=== PATIENT | male | born 1980 | race Caucasian/White ===

== ENCOUNTER 2017-10-13 00:34 | Emergency (ER) | payer OTHER ==
[~2017-10-13] VITALS: Ht 165.1 cm; Wt 86.2 kg
[~2017-10-13 00:34] MED LIST: BUSP15TA70 PO; RISP4TAB7 PO
[2017-10-13 00:35] VITALS: Ht 165.1 cm; Wt 86.2 kg
--- NOTE | 2017-10-13 01:06 | EMERGENCY ROOM VISIT NOTE ---
History Report prepared by Aria: Alton Jeong Under the Supervision of: Dr. Hermila Car M.D. First contact with patient: 00:40 Chief Complaint: MENTAL HEALTH EVALUATION Stated Complaint: MENTAL HEALTH EVALUATION History of Present Illness The patient is a 36 year old male who presents to the Emergency Room for a mental health evaluation due to the inability to care for himself. Per the patients sisters petition, the patient has been turning off the heat in his house, he thinks that people are robots, he is going to kill the dogs if they dont start growling, and he has been throwing away food. The patient states that tonight he was trying to sleep, and [place] came to his house and talked to him, and the police came and took him to the ED. The patient states that he would not hurt himself or anyone else, and he does not have any medical problems. The patient states he is supposed to serve a 30 day incarceration due to drug related issues. He states that he has not used and drugs in a long time. He denies any abdominal pain or recent sickness. History is limited secondary to non-cooperation. Source of History: patient, other (petitioning statement) History Limited By: other (non-cooperation) Onset: earlier today Position: other (global) Quality: other (inability to care for himself) Associated Symptoms: No abdominal pain Review of Systems See HPI for pertinent positives & negatives. A total of 10 systems reviewed and were otherwise negative. Past Medical & Surgical Medical Problems: (1) Depressive Disorder Nec (2) Schizophreniform Disorder, Unspecified Family History Cancer Diabetes mellitus Heart disease Social History Smoking Status: Current Every Day Smoker Alcohol Use: none Drug Use: marijuana Marital Status: single, in relationship Occupation Status: unemployed, disabled Current/Historical Medications Unable to Obtain Active Prescriptions or Reported Meds Allergies Coded Allergies: No Known Allergies (Verified , 09/06/14) Physical Exam Vital Signs Date Time Temp Pulse Resp B/P (MAP) Pulse Ox O2 Delivery O2 Flow Rate FiO2 10/13/17 06:45 36.8 88 20 120/77 97 Room Air 10/13/17 01:52 37.0 99 20 124/68 97 Room Air 10/13/17 00:35 37.1 132 20 138/93 96 Room Air Physical Exam Vital signs reviewed. General: Generally unkempt male, in no significant distress. HEENT: No scleral icterus, PERRLA, neck supple. Atraumatic. Cardiovascular: Regular rate and rhythm, no extra sounds. Pulmonary: Clear to auscultation bilaterally, normal work of breathing. Abdomen: Soft, nontender, nondistended, positive bowel sounds. Musculoskeletal: Atraumatic, no peripheral edema. Neurologic: Patient awake alert and oriented x 3 Skin: Warm, dry, no rash Psych: agitated, minimally cooperative, denies SI and HI, and he has paranoid thinking. Medical Decision & Procedures Laboratory Results 10/13/17 01:04 Red Blood Count 5.21, Mean Corpuscular Volume 84.3, Mean Corpuscular Hemoglobin 30.7, Mean Corpuscular Hemoglobin Concent 36.4, Mean Platelet Volume 9.3, Neutrophils (%) (Auto) 50.0, Lymphocytes (%) (Auto) 38.9, Monocytes (%) (Auto) 9.9, Eosinophils (%) (Auto) 0.8, Basophils (%) (Auto) 0.3, Neutrophils # (Auto) 5.56, Lymphocytes # (Auto) 4.32, Monocytes # (Auto) 1.10, Eosinophils # (Auto) 0.09, Basophils # (Auto) 0.03 10/13/17 01:04 Test 10/13/17 00:48 10/13/17 01:04 Urine Color YELLOW Urine Appearance CLEAR (CLEAR) Urine pH 6.5 (4.5-7.5) Urine Specific [place] 1.008 (1.000-1.030) Urine Protein NEG (NEG) Urine Glucose (UA) NEG (NEG) Urine Ketones NEG (NEG) Urine Occult Blood NEG (NEG) Urine Nitrite NEG (NEG) Urine Bilirubin NEG (NEG) Urine Urobilinogen NEG (NEG) Urine Leukocyte Esterase TRACE (NEG) Urine WBC (Auto) /hpf (0-5) Urine RBC (Auto) /hpf (0-4) Urine Hyaline Casts (Auto) /lpf (0-5) Urine Epithelial Cells (Auto) /lpf (0-5) Urine Bacteria (Auto) (NEG) Urine RBC 0-4 /hpf (0-4) Urine WBC 1-5 /hpf (0-5) Urine Epithelial Cells 5-10 /lpf (0-5) Urine Bacteria NEG (NEG) Urine Opiates Screen NEG (NEG) Urine Methadone, Qualitative NEG (NEG) Urine Barbiturates NEG (NEG) Urine Phencyclidine (PCP) Level NEG (NEG) Ur Amphetamine/Methamphetamine NEG (NEG) MDMA (Ecstasy) Screen NEG (NEG) Urine Benzodiazepines Screen NEG (NEG) Urine Cocaine Metabolite NEG (NEG) Urine Marijuana (THC) NEG (NEG) White Blood Count 11.11 K/uL (4.8-10.8) Red Blood Count 5.21 M/uL (4.7-6.1) Hemoglobin 16.0 g/dL (14.0-18.0) Hematocrit 43.9 % (42-52) Mean Corpuscular Volume 84.3 fL (80-100) Mean Corpuscular Hemoglobin 30.7 pg (25-34) Mean Corpuscular Hemoglobin Concent 36.4 g/dl (32-36) Platelet Count 300 K/uL (130-400) Mean Platelet Volume 9.3 fL (7.4-10.4) Neutrophils (%) (Auto) 50.0 % Lymphocytes (%) (Auto) 38.9 % Monocytes (%) (Auto) 9.9 % Eosinophils (%) (Auto) 0.8 % Basophils (%) (Auto) 0.3 % Neutrophils # (Auto) 5.56 K/uL (1.4-6.5) Lymphocytes # (Auto) 4.32 K/uL (1.2-3.4) Monocytes # (Auto) 1.10 K/uL (0.11-0.59) Eosinophils # (Auto) 0.09 K/uL (0-0.5) Basophils # (Auto) 0.03 K/uL (0-0.2) RDW Standard Deviation 40.1 fL (36.4-46.3) RDW Coefficient of Variation 13.2 % (11.5-14.5) Immature Granulocyte % (Auto) 0.1 % Immature Granulocyte # (Auto) 0.01 K/uL (0.00-0.02) Anion Gap 7.0 mmol/L (3-11) Est Creatinine Clear Calc Drug Dose 108.3 ml/min Estimated GFR () 117.6 Estimated GFR (Non- 101.4 BUN/Creatinine Ratio 11.7 (10-20) Calcium Level 8.4 mg/dl (8.5-10.1) Total Bilirubin 0.2 mg/dl (0.2-1) Direct Bilirubin < 0.1 mg/dl (0-0.2) Aspartate Amino Transf (AST/SGOT) 19 U/L (15-37) Alanine Aminotransferase (ALT/SGPT) 46 U/L (12-78) Alkaline Phosphatase 97 U/L (45-117) Total Protein 6.9 gm/dl (6.4-8.2) Albumin 3.3 gm/dl (3.4-5.0) Thyroid Stimulating Hormone (TSH) 2.280 uIu/ml (0.300-4.500) Salicylates Level 2.9 mg/dl (2.8-20) Acetaminophen Level < 2 ug/ml (10-30) Ethyl Alcohol mg/dL < 3.0 mg/dl (0-3) Laboratory results per my review. Medications Administered Medications (Trade) Dose Ordered Sig/Genaro Route Start Time Stop Time Status Last Admin Dose Admin Potassium Chloride (Klor-Con M10) 40 meq NOW STAT PO 10/13/17 01:47 10/13/17 01:48 DC 10/13/17 01:57 40 MEQ ED Course 0040: Past medical records reviewed. The patient was evaluated in room A8. A complete history and physical examination was performed. 0147: Potassium Chloride 40meq PO 0705: I signed the transfer papers for the patient to go to [place]. Medical Decision Differential diagnosis: Etiologies such as mood disorder, infection, hypoglycemia, electrolyte abnormalities, cardiac sources, intracerebral event, toxicologic, neurologic, as well as others were entertained. This patient was evaluated and appeared to be in no significant distress. He is somewhat disheveled. He was medically cleared, found to have a slightly low potassium. He was given 40 mEq by mouth. The patient is refusing inpatient admission. The 302 was signed as he is unable to care for himself, has paranoid thinking, disorganized thoughts and has not been taking any of his medications for the better part of 3 months. [facility] Secure transportation arrangements have been made. Medication Reconcilliation Current Medication List: was personally reviewed by me Blood Pressure Screening Patient's blood pressure: Normal blood pressure Impression Primary Impression: Paranoia Additional Impressions: Disorganized thought process Noncompliance with medication regimen Scribe Attestation The scribe's documentation has been prepared under my direction and personally reviewed by me in its entirety. I confirm that the note above accurately reflects all work, treatment, procedures, and medical decision making performed by me. Departure Information Dispostion Mental Health Acute Care Prescriptions Unable to Obtain Active Prescriptions or Reported Meds Referrals No Doctor, Assigned (PCP) Patient Instructions My [facility] Problem Qualifiers
[2017-10-13 01:13] LABS: BASO % 0.3 %; BASO ABS # 0.03 K/uL (0-0.2); EOS % 0.8 %; EOS ABS # 0.09 K/uL (0-0.5); HEMATOCRIT 43.9 % (42-52); IG# 0.01 K/uL (0.00-0.02); LYMPH % 38.9 %; LYMPH ABS # 4.32 K/uL (1.2-3.4); MEAN CELL VOLUME 84.3 fL (80-100); MEAN CORPUSCULAR HEMOGLOBIN 30.7 pg (25-34); MEAN CORPUSCULAR HGB CONC 36.4 g/dl (32-36); MEAN PLATELET VOLUME 9.3 fL (7.4-10.4); MONO % 9.9 %; NEUT ABS # 5.56 K/uL (1.4-6.5); PLATELET COUNT 300 K/uL (130-400); RED CELL DISTRIBUTION WIDTH CV 13.2 % (11.5-14.5); RED CELL DISTRIBUTION WIDTH SD 40.1 fL (36.4-46.3); WHITE BLOOD COUNT 11.11 K/uL (4.8-10.8)
[2017-10-13 01:31] LABS: ALBUMIN 3.3 gm/dl (3.4-5.0); ALT/SGPT 46 U/L (12-78); AST/SGOT 19 U/L (15-37); BLOOD UREA NITROGEN 11 mg/dl (7-18); CALCIUM 8.4 mg/dl (8.5-10.1); CARBON DIOXIDE 26 mmol/L (21-32); CREATININE 0.97 mg/dl (0.60-1.40); GLUCOSE 105 mg/dl (70-99); POTASSIUM 3.3 mmol/L (3.5-5.1); SODIUM 138 mmol/L (136-145)
[2017-10-13 01:42] LABS: ALKALINE PHOSPHATASE 97 U/L (45-117); TOTAL PROTEIN 6.9 gm/dl (6.4-8.2)
[2017-10-13] MEDS ORDERED: POTASSIUM CHLORIDE 10 MEQ TABCR PO STA (01:47)
[2017-10-13 08:24] VITALS: BP 120/77; PULSE 88; TEMP 36.8; O2SAT 97
== END 2017-10-13 08:26 ==
LOC: C.EDB 00:36 → C.EDA 08:26
DX: F22 Delusional disorders (principal); F20.1 Disorganized schizophrenia; Z91.14 Patient's other noncompliance with medication regimen; F32.9 Major depressive disorder, single episode, unspecified; F17.210 Nicotine dependence, cigarettes, uncomplicated; Z80.9 Family history of malignant neoplasm, unspecified; Z83.3 Family history of diabetes mellitus; Z82.49 Family history of ischemic heart disease and other diseases of the circulatory system

== ENCOUNTER 2018-01-16 22:32 | Emergency (ER) | payer OTHER ==
[~2018-01-16] VITALS: Ht 162.6 cm; Wt 82.1 kg
[2018-01-16] MEDS ORDERED: [UNRECOGNIZED DRUG - CODE] INJ (22:55)
--- NOTE | 2018-01-16 23:13 | EMERGENCY ROOM VISIT NOTE ---
History Report prepared by Aria: Margarita Wilder Under the Supervision of: Yann PetersonO. First contact with patient: 22:34 Chief Complaint: OTHER COMPLAINT Stated Complaint: MENTAL HEALTH EVALUATION History of Present Illness The patient is a 37 year old male who presents to the Emergency Room for a mental health evaluation. The patient states he is not thinking straight and reports he is supposed to be on medications. He states "I'm just tired and need to shower". He notes he has chronic back pain. Earlier this evening he called [facility] to request to speak with someone. He met with [facility] worker at [facility] for assessment. He is on probation in [facility] but came to [place] recently to live with his sister. When he got to his sisters 3 days ago she told him that he could not stay there so patient has been living on the streets. Denies suicidal and homicidal ideation to [facility]. Denies current SI/HI. He states he is scared someone is going to hurt him. He reports he is on a social security income and is unable to afford an apartment with the money he has. He states he is seeing things he shouldn't see. The patient has a history of Schizophrenia. He states his last Invega injection was a while ago. Not taking oral Invega. Denies any current or recent drug or alcohol use. Denies any trauma. Source of History: patient Associated Symptoms: + back pain Review of Systems ROS limited. Past Medical & Surgical Medical Problems: (1) Depressive Disorder Nec (2) Schizophreniform Disorder, Unspecified Family History Cancer Diabetes mellitus Heart disease Social History Smoking Status: Current Every Day Smoker Alcohol Use: none Drug Use: marijuana Marital Status: single, in relationship Occupation Status: unemployed, disabled Current/Historical Medications Scheduled Paliperidone Palmitate (Invega Trinza), 1 DOSE INJ Q3MO Quetiapine Fumarate (Seroquel), 200 MG PO DAILY Allergies Coded Allergies: No Known Allergies (Verified , 01/16/18) Physical Exam Vital Signs Date Time Temp Pulse Resp B/P (MAP) Pulse Ox O2 Delivery O2 Flow Rate FiO2 01/16/18 23:18 37.0 86 18 113/66 95 Room Air Physical Exam GENERAL: alert, well appearing, well nourished, no distress, non-toxic EYE EXAM: normal conjunctiva, PERRL and EOM's grossly intact NECK: supple, no nuchal rigidity, no adenopathy, non-tender LUNGS: Clear to auscultation. Normal chest wall mechanics HEART: no murmurs, S1 normal and S2 normal ABDOMEN: abdomen soft, non-tender, normo-active bowel sounds, no masses, no rebound or guarding. BACK: Back is symmetrical on inspection and there is no deformity, no midline tenderness, no CVA tenderness. SKIN: no rashes and no bruising UPPER EXTREMITIES: upper extremities are grossly normal. LOWER EXTREMITIES: No pitting edema. NEURO EXAM: Normal sensorium, cranial nerves II-XII [grossly] intact, normal speech, no [gross] weakness of arms, no [gross] weakness of legs. Medical Decision & Procedures ED Course 2233: The patient was evaluated in room A5. A complete history and physical exam was performed. 2350: I discussed results and plan with patient. He verbalizes agreement and understanding. He was discharged home. Medical Decision Differential diagnosis: Etiologies such as mood disorder, infection, hypoglycemia, electrolyte abnormalities, cardiac sources, intracerebral event, toxicologic, neurologic, as well as others were entertained. Medication Reconcilliation Current Medication List: was personally reviewed by me Blood Pressure Screening Patient's blood pressure: Normal blood pressure Impression Primary Impression: Schizophrenia Additional Impression: Homelessness Scribe Attestation The scribe's documentation has been prepared under my direction and personally reviewed by me in its entirety. I confirm that the note above accurately reflects all work, treatment, procedures, and medical decision making performed by me. Departure Information Dispostion Home / Self-Care Referrals No Doctor, Assigned (PCP) Patient Instructions My [facility] Additional Instructions Please follow-up as recommended by the medical case manager regarding receiving your injections, as well as additional resources available. If you have any new or concerning symptoms, please return to the emergency room. Problem Qualifiers Primary Impression: Schizophrenia Schizophrenia type: unspecified Qualified Codes: F20.9 - Schizophrenia, unspecified
[2018-01-16 23:18] VITALS: TEMP 37; Ht 162.6 cm; Wt 82.1 kg
[2018-01-17 00:32] VITALS: BP 136/81; PULSE 110; O2SAT 99
[2018-01-17] MEDS ORDERED: PALI234I IM (20:01)
[2018-01-17] MEDS ORDERED: SRQ/200 PO (22:55)
== END 2018-01-17 00:30 | disposition home or self-care (01) ==
LOC: EDBD 22:32 → C.EDA 22:35
DX: F20.9 Schizophrenia, unspecified (principal); Z59.0 Homelessness; F32.9 Major depressive disorder, single episode, unspecified; F17.210 Nicotine dependence, cigarettes, uncomplicated; Z79.899 Other long term (current) drug therapy

== ENCOUNTER 2018-01-17 18:36 | Emergency (ER) | payer OTHER ==
[~2018-01-17] VITALS: Ht 165.1 cm; Wt 85.0 kg
[~2018-01-17 18:36] MED LIST changes: -BUSP15TA70 PO; -RISP4TAB7 PO; +[UNRECOGNIZED DRUG - CODE] INJ
[2018-01-17 19:00] VITALS: Ht 165.1 cm; Wt 85.0 kg
[2018-01-17] MEDS ORDERED: PALI234I IM (20:01)
[2018-01-17 20:21] LABS: BASO % 0.2 %; BASO ABS # 0.02 K/uL (0-0.2); EOS % 0.7 %; EOS ABS # 0.08 K/uL (0-0.5); HEMOGLOBIN 15.3 g/dL (14.0-18.0); IG# 0.03 K/uL (0.00-0.02); LYMPH % 33.2 %; LYMPH ABS # 3.86 K/uL (1.2-3.4); MEAN CELL VOLUME 82.9 fL (80-100); MEAN CORPUSCULAR HEMOGLOBIN 29.5 pg (25-34); MEAN CORPUSCULAR HGB CONC 35.6 g/dl (32-36); MEAN PLATELET VOLUME 8.8 fL (7.4-10.4); MONO % 6.5 %; MONO ABS # 0.75 K/uL (0.11-0.59); NEUT % 59.1 %; NEUT ABS # 6.88 K/uL (1.4-6.5); PLATELET COUNT 399 K/uL (130-400); RED CELL DISTRIBUTION WIDTH CV 13.2 % (11.5-14.5); WHITE BLOOD COUNT 11.62 K/uL (4.8-10.8)
[2018-01-17 20:39] LABS: ALBUMIN 3.2 gm/dl (3.4-5.0); CALCIUM 7.9 mg/dl (8.5-10.1); CREATININE 0.83 mg/dl (0.60-1.40); POTASSIUM 3.3 mmol/L (3.5-5.1)
[2018-01-17 20:50] LABS: TOTAL PROTEIN 7.3 gm/dl (6.4-8.2)
[2018-01-17] MEDS ORDERED: SRQ/200 PO (22:55)
--- NOTE | 2018-01-18 00:45 | EMERGENCY ROOM VISIT NOTE ---
History Report prepared by Aria: Benoit Munoz Under the Supervision of: Dr. Tony Montgomery D.O. First contact with patient: 18:50 Stated Complaint: MHID History of Present Illness The patient is a 37 year old male who presents to the Emergency Room with request for episodic general mental health evaluation [employer]. Per CAN help manager safe the patient was seen and evaluated yesterday for similar symptoms, though she reports the patient cried during the entire evaluation and was unable to share enough information. She notes that she met with the patient today. She states the patient seems very paranoid and feels as though he is being watched. He stated that he believes his parents were murdered. She notes the patient is on probation for drug possession, though the patient reports that he has not used drugs. The patient reports that he is homeless and needs help. Per CAN help manager safe, the patient stated that he has to be crazy in order to get help. The patient reported that he needs to act crazy and become aggressive to get help. He believes people brought diseases around him and that is why he has schizophrenia. It is unclear if the patient was actually diagnosed with schizophrenia in the past. He is worried about someone giving him a weapon so he could shoot himself. The patient states that he feels helpless. The patient repetitively states that he does not want to be charged with a felony and wants help. He states that he contacted [facility] for help. He reports that he would like to go to [facility]. Source of History: patient Onset: [employer] Position: other (general ) Quality: other (mental health evaluation) Note: Notes helplessness. Review of Systems See HPI for pertinent positives & negatives. A total of 10 systems reviewed and were otherwise negative. Past Medical & Surgical Medical Problems: (1) Depressive Disorder Nec (2) Schizophreniform Disorder, Unspecified Family History Cancer Diabetes mellitus Heart disease Social History Smoking Status: Current Every Day Smoker Alcohol Use: none Drug Use: marijuana Marital Status: single, in relationship Occupation Status: unemployed, disabled Current/Historical Medications Scheduled Paliperidone Palmitate (Invega Sustenna), 1 SYR IM MONTHLY Quetiapine Fumarate (Seroquel), 1 TAB PO DAILY Allergies Coded Allergies: Haloperidol (Verified Adverse Reaction, Severe, UNCONTROLABLE MOVEMENTS, ) Physical Exam Vital Signs Date Time Temp Pulse Resp B/P (MAP) Pulse Ox O2 Delivery O2 Flow Rate FiO2 01/17/18 19:00 37.3 98 20 150/85 96 Room Air Physical Exam CONSTITUTIONAL/VITAL SIGNS: Reviewed / noted above. GENERAL: Non-toxic in appearance. INTEGUMENTARY: Warm, dry, and [place]. HEAD: Normocephalic. EYES: without scleral icterus or trauma. ENT/OROPHARYNX: clear and moist. LYMPHADENOPATHY/NECK: Is supple without lymphadenopathy or meningismus. RESPIRATORY: Lungs clear and equal. CARDIOVASCULAR: Regular rate and rhythm. GI/ABDOMEN: Soft and nontender. No organomegaly or pulsatile mass. No rebound or guarding. Normal bowel sounds. EXTREMITIES: Warm and well perfused. BACK: No CVA tenderness. NEUROLOGICAL: Intact without focal deficits. PSYCHIATRIC: Depressed affect. Paranoia. MUSCULOSKELETAL: Normally developed with good muscle tone. Medical Decision & Procedures Laboratory Results 01/17/18 19:54 Red Blood Count 5.19, Mean Corpuscular Volume 82.9, Mean Corpuscular Hemoglobin 29.5, Mean Corpuscular Hemoglobin Concent 35.6, Mean Platelet Volume 8.8, Neutrophils (%) (Auto) 59.1, Lymphocytes (%) (Auto) 33.2, Monocytes (%) (Auto) 6.5, Eosinophils (%) (Auto) 0.7, Basophils (%) (Auto) 0.2, Neutrophils # (Auto) 6.88, Lymphocytes # (Auto) 3.86, Monocytes # (Auto) 0.75, Eosinophils # (Auto) 0.08, Basophils # (Auto) 0.02 01/17/18 19:54 Test 01/17/18 19:15 01/17/18 19:54 Urine Color YELLOW Urine Appearance CLEAR (CLEAR) Urine pH 6.5 (4.5-7.5) Urine Specific [place] 1.008 (1.000-1.030) Urine Protein NEG (NEG) Urine Glucose (UA) NEG (NEG) Urine Ketones NEG (NEG) Urine Occult Blood NEG (NEG) Urine Nitrite NEG (NEG) Urine Bilirubin NEG (NEG) Urine Urobilinogen NEG (NEG) Urine Leukocyte Esterase NEG (NEG) Urine Opiates Screen NEG (NEG) Urine Methadone, Qualitative NEG (NEG) Urine Barbiturates NEG (NEG) Urine Phencyclidine (PCP) Level NEG (NEG) Ur Amphetamine/Methamphetamine NEG (NEG) MDMA (Ecstasy) Screen NEG (NEG) Urine Benzodiazepines Screen NEG (NEG) Urine Cocaine Metabolite NEG (NEG) Urine Marijuana (THC) NEG (NEG) White Blood Count 11.62 K/uL (4.8-10.8) Red Blood Count 5.19 M/uL (4.7-6.1) Hemoglobin 15.3 g/dL (14.0-18.0) Hematocrit 43.0 % (42-52) Mean Corpuscular Volume 82.9 fL (80-100) Mean Corpuscular Hemoglobin 29.5 pg (25-34) Mean Corpuscular Hemoglobin Concent 35.6 g/dl (32-36) Platelet Count 399 K/uL (130-400) Mean Platelet Volume 8.8 fL (7.4-10.4) Neutrophils (%) (Auto) 59.1 % Lymphocytes (%) (Auto) 33.2 % Monocytes (%) (Auto) 6.5 % Eosinophils (%) (Auto) 0.7 % Basophils (%) (Auto) 0.2 % Neutrophils # (Auto) 6.88 K/uL (1.4-6.5) Lymphocytes # (Auto) 3.86 K/uL (1.2-3.4) Monocytes # (Auto) 0.75 K/uL (0.11-0.59) Eosinophils # (Auto) 0.08 K/uL (0-0.5) Basophils # (Auto) 0.02 K/uL (0-0.2) RDW Standard Deviation 40.0 fL (36.4-46.3) RDW Coefficient of Variation 13.2 % (11.5-14.5) Immature Granulocyte % (Auto) 0.3 % Immature Granulocyte # (Auto) 0.03 K/uL (0.00-0.02) Anion Gap 5.0 mmol/L (3-11) Est Creatinine Clear Calc Drug Dose 124.6 ml/min Estimated GFR () 132.1 Estimated GFR (Non- 114.0 BUN/Creatinine Ratio 4.7 (10-20) Calcium Level 7.9 mg/dl (8.5-10.1) Total Bilirubin 0.3 mg/dl (0.2-1) Aspartate Amino Transf (AST/SGOT) 14 U/L (15-37) Alanine Aminotransferase (ALT/SGPT) 26 U/L (12-78) Alkaline Phosphatase 108 U/L (45-117) Total Protein 7.3 gm/dl (6.4-8.2) Albumin 3.2 gm/dl (3.4-5.0) Globulin 4.1 gm/dl (2.5-4.0) Albumin/Globulin Ratio 0.8 (0.9-2) Thyroid Stimulating Hormone (TSH) 0.689 uIu/ml (0.300-4.500) Salicylates Level 4.3 mg/dl (2.8-20) Acetaminophen Level < 2 ug/ml (10-30) Ethyl Alcohol mg/dL < 3.0 mg/dl (0-3) Laboratory results as stated above per my review. ED Course 185: Previous medical records were reviewed. The patient was evaluated in room A7. A complete history and physical examination was performed. 2105: The patient is medically cleared. 2314: The patient was accepted to [facility], though will no be placed until 1000 tomorrow. 0230: The patient was signed out to Dr. Lund, ED at shift change. Medical Decision Differential includes toxic ingestions, self-mutilation, suicidal ideation, suicide attempt, and depression. This is a 37-year-old male who presents to the ED with a chief complaint of being paranoid and feeling hopeless. He told the can help worker that the bugs have cameras on them. He states that he is worried that someone might make him take a gun and kill himself or others. He has a reported history of schizophrenia. He is currently on parole for drug charges and is homeless. The patient desires to go to [facility]. His physical exam was unremarkable. He does appear to be depressed. The patient was medically cleared. He has been accepted to the [facility] for 10 AM tomorrow morning. Medication Reconcilliation Current Medication List: was personally reviewed by me Blood Pressure Screening Patient's blood pressure: Elevated blood pressure Blood pressure disposition: Referred to PCP Impression Primary Impression: Paranoia Additional Impression: Depression Scribe Attestation The scribe's documentation has been prepared under my direction and personally reviewed by me in its entirety. I confirm that the note above accurately reflects all work, treatment, procedures, and medical decision making performed by me. Departure Information Dispostion Mental Health Acute Care Referrals No Doctor, Assigned (PCP) Problem Qualifiers
[2018-01-18 03:20] VITALS: TEMP 36.9
--- NOTE | 2018-01-18 06:01 | EMERGENCY ROOM VISIT NOTE ---
ED Visit Note This case was signed out to me at change of shift. The patient has been accepted at the [facility] and will be transferred there at 10 AM in the morning. The patient is resting comfortably at this time. I checked on the patient again at this time and he continues to sleep. He will be transported by constable to the [facility] this morning.
[2018-01-18 09:58] VITALS: BP 117/65; PULSE 83; O2SAT 96
== END 2018-01-18 10:00 ==
LOC: EDSEX 18:36 → EDBD 18:36 → C.EDA 18:38
DX: F22 Delusional disorders (principal); F32.9 Major depressive disorder, single episode, unspecified; F20.9 Schizophrenia, unspecified; F17.200 Nicotine dependence, unspecified, uncomplicated; F12.90 Cannabis use, unspecified, uncomplicated; Z79.899 Other long term (current) drug therapy; Z88.8 Allergy status to other drugs, medicaments and biological substances